=== PATIENT | female | born 1995 | race Caucasian/White ===

== ENCOUNTER 2016-06-05 15:44 | Emergency (ER) | payer MEDICAID ==
[~2016-06-05] VITALS: Ht 157.5 cm; Wt 81.6 kg
[2016-06-05 16:45] LABS: microscopic required? NO
[2016-06-05 17:13] LABS: urine erythrocyte NEGATIVE (NEGATIVE)
[2016-06-05 17:28] LABS: BASOPHIL % 0.3 % (0-2)
[2016-06-05 17:37] LABS: PLATELET COUNT 308 x10^3mcL (130-400); RED CELL DISTRIBUTION WIDTH 14.3 % (11.5-14.5)
[2016-06-05 17:39] LABS: CALCIUM 8.4 mg/dL (8.5-10.1); CARBON DIOXIDE 25.1 mmol/L (21-32); CHLORIDE SERUM 103 mmol/L (98-107); CREATININE SERUM 0.7 mg/dL (0.6-1.0); GFR1 > 60 mL/min; GLUCOSE SERUM 81 mg/dL (74-106); POTASSIUM SERUM 3.8 mmol/L (3.5-5.1); SODIUM SERUM 138 mmol/L (136-145)
[2016-06-05 17:44] LABS: ALKALINE PHOSPHATASE 121 U/L (46-116); ALT/SGPT 13 U/L (14-59); AST/SGOT 14 U/L (15-37); BILIRUBIN TOTAL 0.2 mg/dL (0.20-1.00); TOTAL PROTEIN, SERUM 7.5 g/dL (6.4-8.2)
[2016-06-05 17:55] LABS: ALBUMIN 2.4 g/dL (3.4-5.0)
[2016-06-06 00:37] VITALS: BP 110/59
== END 2016-06-06 00:37 | disposition short-term general hospital (02) ==
LOC: ED 15:44
PROVIDERS: Emergency Medicine
DX: O46.93 Antepartum hemorrhage, unspecified, third trimester (principal); Z3A.31 31 weeks gestation of pregnancy
CPT/HCPCS: J1460; Q0092

== ENCOUNTER 2016-12-10 19:54 | Emergency (ER) | payer MEDICAID ==
[2016-12-10 20:24] VITALS: BP 134/53
== END 2016-12-10 23:38 | disposition home or self-care (01) ==
LOC: ED 19:54
DX: Z11.3 Encounter for screening for infections with a predominantly sexual mode of transmission (principal)

== ENCOUNTER 2017-10-04 15:40 | Emergency (ER) | payer MEDICAID | END 2017-10-04 16:16 | disposition left against medical advice (07) | LOC: ED 15:40 | DX: Z53.21 Procedure and treatment not carried out due to patient leaving prior to being seen by health care provider (principal) ==